=== PATIENT | female | born 1975 | race Caucasian/White ===

== ENCOUNTER 2017-07-14 11:27 | Emergency (ER) | payer OTHER, MEDICARE ==
[2017-07-14] MEDS ORDERED: Ondansetron 4 MG/2 ML SDV IVPUSH ONE (11:40)
[2017-07-14] MEDS ORDERED: Sodium Chloride 0.9% 1,000 ML IV ONE (11:40)
[2017-07-14] MEDS ORDERED: Ketorolac 30 MG/ML SDV IVPUSH ONE (11:40)
--- NOTE | 2017-07-14 11:43 | EDM.PDOC ---
ED HPI GENERAL MEDICAL PROBLEM - General Chief Complaint: Gastrointestinal Problem Stated Complaint: STOMACH PAIN Time Seen by Provider: 07/14/17 11:37 Source of Information: Reports: Patient History Limitations: Reports: No Limitations - History of Present Illness INITIAL COMMENTS - FREE TEXT/NARRATIVE: HISTORY AND PHYSICAL: History of present illness: Patient is a 41-year-old female who presents to the emergency room with complaints of generalized abdominal pain, nausea and diarrhea. She states that the pain will "jumping around" going from her low abdomen to her epigastric area. She has nausea but has not had any vomiting. Is eating and drinking appropriately. She denies any dysuria. Denies any chance of as she does have a IUD. Denies any chest pain, shortness of breath, or cough. Review of systems: As per history of present illness and below otherwise all systems reviewed and negative. Past medical history: As per history of present illness and as reviewed below otherwise noncontributory. Surgical history: As per history of present illness and as reviewed below otherwise noncontributory. Social history: No reported history of drug or alcohol abuse. Family history: As per history of present illness and as reviewed below otherwise noncontributory. Physical exam: Gen.: Well-developed and well-nourished 41-year-old female. Alert and oriented. Nontoxic appearing and in no acute distress HEENT: Atraumatic, normocephalic, pupils reactive, negative for conjunctival pallor or scleral icterus, mucous membranes moist, throat clear, neck supple, nontender, trachea midline. Lungs: Clear to auscultation, breath sounds equal bilaterally, chest nontender. Heart: S1S2, regular, negative for clicks, rubs, or JVD. Abdomen: Soft, nondistended, generalized diffuse tenderness throughout. Negative for masses or hepatosplenomegaly. Mild bilateral costovertebral tenderness. Pelvis: Stable nontender. Genitourinary: Deferred. Rectal: Deferred. Extremities: Atraumatic, negative for cords or calf pain. Neurovascular unremarkable. Neuro: Awake, alert, oriented. Cranial nerves II through XII unremarkable. Cerebellum unremarkable. Motor and sensory unremarkable throughout. Exam nonfocal. CBC, CMP, amylase, lipase are within normal limits. There is a few WBCs and bacteria in her urinalysis but is slightly contaminated due to epithelial cells noted in the sample. The patient is currently menstruating which would twice she has RBCs in her urine. Due to that we did do a CT scan which did not show any kidney stone. Did show diverticulosis without diverticulitis. I did add a urine culture onto her UA. We discussed her diagnostic results. Informed her to follow up with her primary care provider or a general surgeon if she continues to have abdominal pain. We'll prescribe Ultram and Zofran for comfort. She voices understanding and is agreeable to plan of care. Denies any further questions at her time. Diagnostics: CBC, CMP, UA, amylase, lipase Therapeutics: IV fluid, Toradol, Zofran Impression: Abdominal pain Plan: 1. The labs and CT results were within normal limits. A prescription for Zofran , antinausea, has been given to you. You may take 1 tablet every 6 hours as needed. Ultram has also been prescribed for comfort. This medication may cause drowsiness so do not take it when driving or needing to be functioning at work. 2. A urine culture has been added on to her labs. We will call you if we need to add an antibiotic in the next 2-3 days. 3. If you continued to have abdominal pain please follow-up with her primary care provider or general surgeon as we discussed. Return to the ED as needed and as discussed. Definitive disposition and diagnosis as appropriate pending reevaluation and review of above. Abdominal Pain Score (Numeric/FACES): 7 - Related Data Allergies Allergy/AdvReac Type Severity Reaction Status Date / Time cephalexin monohydrate Allergy unknown Verified 07/14/17 11:37 [From Keflex] escitalopram oxalate Allergy closed up Verified 07/14/17 11:37 [From Lexapro] throat meperidine HCl [From Demerol] Allergy Nausea and Verified 07/14/17 11:37 Vomiting nitrofurantoin Allergy throat Verified 07/14/17 11:37 [From Macrobid] closing nitrofurantoin Allergy throat Verified 07/14/17 11:37 macrocrystalline closing [From Macrobid] Penicillins Allergy Shortness Verified 07/14/17 11:37 of Breath Sulfa (Sulfonamide Allergy generalized Verified 07/14/17 11:37 Antibiotics) body aches sumatriptan [From Imitrex] Allergy Chest Pain Verified 07/14/17 11:37 sumatriptan succinate Allergy Chest Pain Verified 07/14/17 11:37 [From Imitrex] cipro Allergy Rash Uncoded 10/15/14 16:16 Home Meds: Home Meds Simvastatin [Zocor] 20 mg PO BEDTIME 10/15/14 [History] traZODone 150 mg PO BEDTIME 10/15/14 [History] Vortioxetine Hydrobromide [Trintellix] 20 mg PO DAILY 07/14/17 [History] Past Medical History Other Gastrointestinal History: bowel obstruction Social & Family History - Tobacco Use Smoking Status *Q: Never Smoker Second Hand Smoke Exposure: No - Alcohol Use Days Per Week of Alcohol Use: 1 Number of Drinks Per Day: 2 Total Drinks Per Week: 2 - Recreational Drug Use Recreational Drug Use: No ED ROS GENERAL - Review of Systems Review Of Systems: ROS reveals no pertinent complaints other than HPI. ED EXAM, GI/ABD - Physical Exam Exam: See Below (See dictation) Course - Vital Signs Last Recorded V/S: Last Vital Signs Temp 99.2 F 07/14/17 11:35 Pulse 66 07/14/17 12:19 Resp 16 07/14/17 12:19 BP 130/78 07/14/17 12:19 Pulse Ox 93 L 07/14/17 12:19 - Orders/Labs/Meds Orders: Active Orders 24 hr Category Date Time Status CULTURE URINE [RM] Stat Lab 07/14/17 11:42 Received Labs: Laboratory Tests 07/14/17 07/14/17 07/14/17 Range/Units 11:42 11:42 12:06 WBC 7.07 (4.0-11.0) K/uL RBC 5.09 (4.30-5.90) M/uL Hgb 14.0 (12.0-16.0) g/dL Hct 41.1 (36.0-46.0) % MCV 80.7 (80.0-98.0) fL MCH 27.5 (27.0-32.0) pg MCHC 34.1 (31.0-37.0) g/dL RDW Std Deviation 41.4 (28.0-62.0) fl RDW Coeff of Emily 14 (11.0-15.0) % Plt Count 240 (150-400) K/uL MPV 9.50 (7.40-12.00) fL Neut % (Auto) 59.8 (48.0-80.0) % Lymph % (Auto) 25.7 (16.0-40.0) % Bureau % (Auto) 11.0 (0.0-15.0) % Eos % (Auto) 3.1 (0.0-7.0) % Baso % (Auto) 0.4 (0.0-1.5) % Neut # (Auto) 4.2 (1.4-5.7) K/uL Lymph # (Auto) 1.8 (0.6-2.4) K/uL Bureau # (Auto) 0.8 (0.0-0.8) K/uL Eos # (Auto) 0.2 (0.0-0.7) K/uL Baso # (Auto) 0.0 (0.0-0.1) K/uL Nucleated RBC % 0.0 /100WBC Nucleated RBCs # 0 K/uL Sodium (136-146) mmol/L Potassium (3.5-5.1) mmol/L Chloride (98-110) mmol/L Carbon Dioxide (21-31) mmol/L BUN (6.0-23.0) mg/dL Creatinine (0.6-1.5) mg/dL Est Cr Clr Drug Dosing mL/min Estimated GFR (MDRD) ml/min Glucose (60-110) mg/dL Calcium (8.8-10.8) mg/dL Total Bilirubin (0.1-1.5) mg/dL AST (5-40) IU/L ALT (8-54) IU/L Alkaline Phosphatase (40-150) Total Protein (6.0-8.0) g/dL Albumin (3.5-5.0) g/dL Globulin (2.0-3.5) g/dL Albumin/Globulin Ratio (1.3-2.8) Amylase (10-90) U/L Lipase (7-80) U/L Urine Color YELLOW Urine Appearance CLOUDY Urine pH 6.0 (5.0-8.0) Ur Specific [place] >= 1.030 (1.001-1.035) Urine Protein TRACE (NEGATIVE) mg/dL Urine Glucose (UA) NEGATIVE (NEGATIVE) mg/dL Urine Ketones NEGATIVE (NEGATIVE) mg/dL Urine Occult Blood LARGE H (NEGATIVE) Urine Nitrite NEGATIVE (NEGATIVE) Urine Bilirubin SMALL H (NEGATIVE) Urine Urobilinogen 0.2 (<2.0) EU/dL Ur Leukocyte Esterase NEGATIVE (NEGATIVE) Urine RBC TOO NUMBEROUS TO CT H (0-2/HPF) Urine WBC 1-2 (0-5/HPF) Ur Epithelial Cells RARE (NONE-FEW) Urine Bacteria FEW (NEGATIVE) Urinalysis Comment Urine HCG, Qual NEGATIVE (NEGATIVE) 07/14/17 Range/Units 12:06 WBC (4.0-11.0) K/uL RBC (4.30-5.90) M/uL Hgb (12.0-16.0) g/dL Hct (36.0-46.0) % MCV (80.0-98.0) fL MCH (27.0-32.0) pg MCHC (31.0-37.0) g/dL RDW Std Deviation (28.0-62.0) fl RDW Coeff of Emily (11.0-15.0) % Plt Count (150-400) K/uL MPV (7.40-12.00) fL Neut % (Auto) (48.0-80.0) % Lymph % (Auto) (16.0-40.0) % Bureau % (Auto) (0.0-15.0) % Eos % (Auto) (0.0-7.0) % Baso % (Auto) (0.0-1.5) % Neut # (Auto) (1.4-5.7) K/uL Lymph # (Auto) (0.6-2.4) K/uL Bureau # (Auto) (0.0-0.8) K/uL Eos # (Auto) (0.0-0.7) K/uL Baso # (Auto) (0.0-0.1) K/uL Nucleated RBC % /100WBC Nucleated RBCs # K/uL Sodium 141 (136-146) mmol/L Potassium 3.7 (3.5-5.1) mmol/L Chloride 110 (98-110) mmol/L Carbon Dioxide 20 L (21-31) mmol/L BUN 9 (6.0-23.0) mg/dL Creatinine 1.0 (0.6-1.5) mg/dL Est Cr Clr Drug Dosing 67.29 mL/min Estimated GFR (MDRD) > 60.0 ml/min Glucose 105 (60-110) mg/dL Calcium 9.5 (8.8-10.8) mg/dL Total Bilirubin 0.3 (0.1-1.5) mg/dL AST 22 (5-40) IU/L ALT 23 (8-54) IU/L Alkaline Phosphatase 63 (40-150) Total Protein 8.0 (6.0-8.0) g/dL Albumin 4.3 (3.5-5.0) g/dL Globulin 3.7 H (2.0-3.5) g/dL Albumin/Globulin Ratio 1.2 L (1.3-2.8) Amylase 43 (10-90) U/L Lipase 33 (7-80) U/L Urine Color Urine Appearance Urine pH (5.0-8.0) Ur Specific [place] (1.001-1.035) Urine Protein (NEGATIVE) mg/dL Urine Glucose (UA) (NEGATIVE) mg/dL Urine Ketones (NEGATIVE) mg/dL Urine Occult Blood (NEGATIVE) Urine Nitrite (NEGATIVE) Urine Bilirubin (NEGATIVE) Urine Urobilinogen (<2.0) EU/dL Ur Leukocyte Esterase (NEGATIVE) Urine RBC (0-2/HPF) Urine WBC (0-5/HPF) Ur Epithelial Cells (NONE-FEW) Urine Bacteria (NEGATIVE) Urinalysis Comment Urine HCG, Qual (NEGATIVE) Meds: Medications Discontinued Medications Generic Name Dose Route Start Last Admin Trade Name Freq PRN Reason Stop Dose Admin Sodium Chloride 1,000 mls @ 999 mls/hr 07/14/17 11:40 07/14/17 12:11 Normal Saline IV 07/14/17 12:40 999 mls/hr STAT ONE Administration Iopamidol 100 ml 07/14/17 13:26 07/14/17 13:28 Isovue Multipack-370 (76%) IVPUSH 07/14/17 13:27 100 ml ONETIME STA Administration Ketorolac Tromethamine 30 mg 07/14/17 11:40 07/14/17 12:16 Toradol IVPUSH 07/14/17 11:41 30 mg ONETIME ONE Administration Morphine Sulfate 2 mg 07/14/17 12:46 01/18/18 12:53 Morphine IVPUSH 07/14/17 12:47 2 mg ONETIME ONE Administration Ondansetron HCl 4 mg 07/14/17 11:40 07/14/17 12:13 Zofran IVPUSH 07/14/17 11:41 4 mg ONETIME ONE Administration Departure - Departure Time of Disposition: 14:25 Disposition: Home, Self-Care 01 Clinical Impression: Abdominal pain - Discharge Information Referrals: Yo Chadwick MD [Primary Care Provider] - Forms: ED Department Discharge Additional Instructions: My general discharge The following information is given to patients seen in the emergency department who are being discharged to home. This information is to outline your options for follow-up care. We provide all patients seen in our emergency department with a follow-up referral. The need for follow-up, as well as the timing and circumstances, are variable depending upon the specifics of your emergency department visit. If you don't have a primary care physician on staff, we will provide you with a referral. We always advise you to contact your personal physician following an emergency department visit to inform them of the circumstance of the visit and for follow-up with them and/or the need for any referrals to a consulting specialist. The emergency department will also refer you to a specialist when appropriate. This referral assures that you have the opportunity for follow-up care with a specialist. All of these measure are taken in an effort to provide you with optimal care, which includes your follow-up. Under all circumstances we always encourage you to contact your private physician who remains a resource for coordinating your care. When calling for follow-up care, please make the office aware that this follow-up is from your recent emergency room visit. If for any reason you are refused follow-up, please contact the [facility] Emergency Department at and asked to speak to the emergency department charge nurse. 1. The labs and CT results were within normal limits. A prescription for Zofran , antinausea, has been given to you. You may take 1 tablet every 6 hours as needed. Ultram has also been prescribed for comfort. This medication may cause drowsiness so do not take it when driving or needing to be functioning at work. 2. A urine culture has been added on to her labs. We will call you if we need to add an antibiotic in the next 2-3 days. 3. If you continued to have abdominal pain please follow-up with her primary care provider or general surgeon as we discussed. Return to the ED as needed and as discussed. - My Orders Last 24 Hours: My Active Orders 07/14/17 11:42 CULTURE URINE [RM] Stat - Assessment/Plan Last 24 Hours: My Active Orders 07/14/17 11:42 CULTURE URINE [RM] Stat
[2017-07-14 12:46] LABS: CHLORIDE,CL 110 mmol/L (98-110); SODIUM,NA 141 mmol/L (136-146)
[2017-07-14] MEDS ORDERED: Morphine 2 MG/ML Syringe IVPUSH ONE (12:46)
[2017-07-14] MEDS ORDERED: Iopamidol 755 MG/ML 500 ML Multipack Bottle IVPUSH STA (13:26)
--- NOTE | 2017-07-14 14:09 | CT ---
CT of the abdomen and pelvis with contrast. HISTORY: Pain TECHNIQUE: Axial CT images were obtained of the abdomen and pelvis following administration of 100 mL of Isovue-370 in left antecubital fossa without complication. Coronal and sagittal reconstructions o btained. FINDINGS: The lung bases are clear, no pleural effusion. Cholecystectomy clips are noted. The common bile duct is mildly prominent, likely reservoir effect. T he pancreas, spleen, and adrenal glands appear normal. The kidneys enhance and function symmetrically without evidence of obstructive uropathy. The large and small bowel are normal in caliber without evidence of obstruction. Mild/moderate divert iculosis without evidence of diverticulitis. Appendectomy. No bulky pelvic lymphadenopathy or free pe lvic fluid. The urinary bladder is normal. Uterus and ovaries appear normal. Essure devices noted. No suspicious osseous abnormalities identified. IMPRESSION: 1. No acute findings demonstrated within the abdomen or pelvis. 2. Diverticulosis without evidence of diverticulitis. 3. Cholecystectomy and appendectomy.
[2017-07-14 16:39] VITALS: BP 152/99
== END 2017-07-14 15:02 | disposition home or self-care (01) ==
LOC: MW.ED 11:27
DX: R10.84 Generalized abdominal pain (principal); Z79.899 Other long term (current) drug therapy; Z88.0 Allergy status to penicillin; Z88.1 Allergy status to other antibiotic agents; Z88.2 Allergy status to sulfonamides; Z88.8 Allergy status to other drugs, medicaments and biological substances
CPT/HCPCS: 36415; 74177; 80053; 81001; 81025; 82150; 83690; 85025; 87086; 96361; 96374; 96375; 99284; J1885; J2270; J2405; J7040; Q9967

== ENCOUNTER 2020-06-06 09:58 | Emergency (ER) | payer OTHER, MEDICARE ==
[2020-06-06 10:15] VITALS: BP 135/85; PULSE 77
--- NOTE | 2020-06-06 10:39 | EDM.PDOC ---
ED HPI GENERAL MEDICAL PROBLEM - General Chief Complaint: Gastrointestinal Problem Stated Complaint: HEMORRHOIDS Time Seen by Provider: 06/06/20 10:05 Source of Information: Reports: Patient History Limitations: Reports: No Limitations - History of Present Illness INITIAL COMMENTS - FREE TEXT/NARRATIVE: HISTORY AND PHYSICAL: History of present illness: Patient is a 44-year-old female who presents to the emergency room from the clinic for evaluation of a hemorrhoid. She states she has a hemorrhoid that intermittently flares up over the past several years, this morning she noticed the hemorrhoid "come out of nowhere" and was causing increased pain with weightbearing/sitting. She did go to the clinic, they recommended she come to the emergency room to have it "looked at". She did use some [id number] medication without any relief. States in the past she has used topical lidocaine jelly with good relief. Patient denies any fever, chills, headache, change in vision, syncope or near syncope. Denies any chest pain, back pain, shortness of breath or cough. Denies any abdominal pain, nausea, vomiting, diarrhea, constipation or dysuria. Has not noted any blood in urine or stool. States she did have a normal bowel movement this morning without any straining or blood. Patient has been eating and drinking appropriately. Review of systems: As per history of present illness and below otherwise all systems reviewed and negative. Past medical history: As per history of present illness and as reviewed below otherwise noncontributory. Surgical history: As per history of present illness and as reviewed below otherwise noncontributory. Social history: See social history for further information Family history: As per history of present illness and as reviewed below otherwise noncontributory. Physical exam: General: Well developed and well nourished. Alert and orientated x 3. Nontoxic in appearance and in no acute distress. Vital signs are stable and have been reviewed by me. Nursing notes were reviewed. HEENT: Atraumatic, normocephalic, pupils equal and reactive bilaterally, negative for conjunctival pallor or scleral icterus, mucous membranes moist, TMs normal bilaterally, throat clear, neck supple, nontender, trachea midline. No drooling or trismus noted. No meningeal signs. No hot potato voice noted. Lungs: Clear to auscultation, breath sounds equal bilaterally, chest nontender. Normal work of breathing, no accessory muscles used. Heart: S1S2, regular rate and rhythm without overt murmur Abdomen: Soft, nondistended, nontender. Negative for masses or hepatosplenomegaly. Negative for costovertebral tenderness. Pelvis: Stable nontender. Genitourinary: Deferred. Rectal: This was done with consent and a commissary agent at the bedside. She does have a thrombosed hemorrhoid at the 6 o'clock position, tender to touch. Good rectal tone, no internal hemorrhoids noted. Hemoccult negative. Skin: Intact, warm, dry. No lesions or rashes noted. Hematologic: No petechiae or purpra. Mucosa appropriate color and normal nail bed color and refill. Extremities: Atraumatic, moves all extremities per self without difficulty or deficits, negative for cords or calf pain. Neurovascular unremarkable. Neuro: Awake, alert, oriented. Cranial nerves II through XII unremarkable. Cerebellum unremarkable. Motor and sensory unremarkable throughout. Exam nonfocal. Psychiatric: Mood and affect are appropriate. Normal thought process. Answering questions appropriately. Notes: Discussed with patient options for treatment. I did offer to call and set up a follow-up appointment with her to see the general surgeon to have this removed, she would prefer to do [id number] and prescribed medications first to see if we can get it to calm down. I have talked with the patient about today's findings, in addition to providing specific details for plan of care. The patient is stable for discharge, counseling was provided and we discussed in great detail signs and symptoms that would prompt them to return to the Emergency Department. Medication, follow up and supportive care measures were reviewed and discussed. Voices understanding and is agreeable to plan of care. Denies any further questions or concerns at this time. Diagnostics: None Therapeutics: None Prescription: Anusol, lidocaine Impression: Hemorrhoids Plan: 1. Today your exam shows an external hemorrhoid. Please take the medication as prescribed over the next week. 2. Try to ingest 20-30g of insoluble fiber per day. Drink plenty of water. Try to reduce straining when having a bowel movement. 3. We encourage you to follow up with your primary care provider and/or general surgeon re-evaluation and further care/management. If your symptoms should worsen, new symptoms develop or any of the signs and symptoms we discussed should arise please return to the emergency room or call 911 (if needed). Definitive disposition and diagnosis as appropriate pending reevaluation and review of above. rectal Pain Score (Numeric/FACES): 3 - Related Data Allergies Allergy/AdvReac Type Severity Reaction Status Date / Time cephalexin monohydrate Allergy unknown Verified 06/06/20 10:09 [From Keflex] escitalopram oxalate Allergy closed up Verified 06/06/20 10:09 [From Lexapro] throat meperidine HCl [From Demerol] Allergy Nausea and Verified 06/06/20 10:09 Vomiting nitrofurantoin Allergy throat Verified 06/06/20 10:09 [From Macrobid] closing nitrofurantoin Allergy throat Verified 06/06/20 10:09 macrocrystalline closing [From Macrobid] Penicillins Allergy Shortness Verified 06/06/20 10:09 of Breath Sulfa (Sulfonamide Allergy generalized Verified 06/06/20 10:09 Antibiotics) body aches sumatriptan [From Imitrex] Allergy Chest Pain Verified 06/06/20 10:09 sumatriptan succinate Allergy Chest Pain Verified 06/06/20 10:09 [From Imitrex] cipro Allergy Rash Uncoded 06/06/20 10:09 Home Meds: Home Meds traZODone 25 mg PO BEDTIME 10/15/14 [History] Diclofenac Submicronized [Diclofenac] 35 mg PO DAILY PRN 06/06/20 [History] Hydrocortisone [Anusol-HC] 1 dose RC BID #1 jar 06/06/20 [Rx] Lidocaine 5% 1 dose RC 6XDAY PRN #1 tube 06/06/20 [Rx] Ondansetron [Zofran] 4 mg PO DAILY PRN 06/06/20 [History] Rosuvastatin [Crestor] 10 mg PO DAILY 06/06/20 [History] Past Medical History Cardiovascular History: Reports: High Cholesterol Gastrointestinal History: Reports: Hemorrhoids, Other (See Below) Other Gastrointestinal History: bowel obstruction 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 ED EXAM, GI/ABD - Physical Exam Exam: See Below (See dictation) Course - Vital Signs Last Recorded V/S: Last Vital Signs Temp 98.8 F 06/06/20 10:12 Pulse 77 06/06/20 10:12 Resp 18 06/06/20 10:12 BP 135/85 06/06/20 10:12 Pulse Ox 96 06/06/20 10:12 Departure - Departure Time of Disposition: 10:39 Disposition: Home, Self-Care 01 Clinical Impression: Hemorrhoid Qualifiers: Hemorrhoid type: unspecified Qualified Code(s): K64.9 - Unspecified hemorrhoids - Discharge Information Prescriptions: Hydrocortisone [Anusol-HC] 1 dose RC BID #1 jar Lidocaine 5% 1 dose RC 6XDAY PRN #1 tube PRN Reason: Pain Instructions: Hemorrhoids, [id number] Referrals: Yo Chadwick MD [Primary Care Provider] - Forms: ED Department Discharge Additional Instructions: The following information is given to patients seen in the emergency department who are being discharged to home. This information is to outline your options for follow-up care. We provide all patients seen in our emergency department with a follow-up referral. The need for follow-up, as well as the timing and circumstances, are variable depending upon the specifics of your emergency department visit. If you don't have a primary care physician on staff, we will provide you with a referral. We always advise you to contact your personal physician following an emergency department visit to inform them of the circumstance of the visit and for follow-up with them and/or the need for any referrals to a consulting specialist. The emergency department will also refer you to a specialist when appropriate. This referral assures that you have the opportunity for follow-up care with a specialist. All of these measure are taken in an effort to provide you with optimal care, which includes your follow-up. Under all circumstances we always encourage you to contact your private physician who remains a resource for coordinating your care. When calling for follow-up care, please make the office aware that this follow-up is from your recent emergency room visit. If for any reason you are refused follow-up, please contact the [facility] Emergency Department at and asked to speak to the emergency department charge nurse. [facility] [address] [place] [address] [facility] [address] [place] [address] Thank you for choosing the [facility] emergency department in [place] for your medical needs today. It was a pleasure caring for you. Today you were seen in the emergency department for hemorrhoid care. 1. Today your exam shows an external hemorrhoid. Please take the medication as prescribed over the next week. 2. Try to ingest 20-30g of insoluble fiber per day. Drink plenty of water. Try to reduce straining when having a bowel movement. 3. We encourage you to follow up with your primary care provider and/or general surgeon re-evaluation and further care/management. If your symptoms should worsen, new symptoms develop or any of the signs and symptoms we discussed should arise please return to the emergency room or call 911 (if needed). Sepsis Event Note (ED) - Evaluation Sepsis Screening Result: No Definite Risk - Focused Exam Vital Signs: Vital Signs Temp Pulse Resp BP Pulse Ox 06/06/20 10:12 98.8 F 77 18 135/85 96
== END 2020-06-06 10:54 | disposition home or self-care (01) ==
LOC: MW.ED 09:58
DX: K64.5 Perianal venous thrombosis (principal); E78.00 Pure hypercholesterolemia, unspecified; Z88.1 Allergy status to other antibiotic agents; Z88.8 Allergy status to other drugs, medicaments and biological substances; Z88.5 Allergy status to narcotic agent; Z88.0 Allergy status to penicillin; Z88.2 Allergy status to sulfonamides; Z79.899 Other long term (current) drug therapy
CPT/HCPCS: 99282

== ENCOUNTER 2024-01-06 13:02 | Emergency (ER) | payer BC ==
[2024-01-06] MEDS: Sodium Chloride 0.9% 500 ML IV SCH (15:15)
[2024-01-06] MEDS: Ondansetron 4 MG/2 ML SDV IVPUSH ONE (15:16)
[2024-01-06] MEDS: Sodium Chloride 0.9% 2.5 ML Syringe FLUSH PRN (15:19)
[2024-01-06] MEDS: Sodium Chloride 0.9% 10 ML Syringe FLUSH PRN (15:19)
[2024-01-06 15:23] LABS: BASOPHILS ABSOLUTE AUTO 0.04 K/uL (0.00-0.20); BASOPHILS PERCENT AUTO 0.6 % (0.0-1.0); EOSINOPHILS ABSOLUTE AUTO 0.15 K/uL (0.00-0.45); EOSINOPHILS PERCENT AUTO 2.2 % (0.0-6.0); HEMATOCRIT 38.2 % (37.0-47.0); IMMATURE GRAN ABSOLUTE AUTO 0.01 K/uL (0.00-0.05); IMMATURE GRAN PERCENT AUTO 0.1 % (0.0-0.4); LYMPHOCYTES ABSOLUTE AUTO 1.71 K/uL (1.00-4.80); LYMPHOCYTES PERCENT AUTO 24.7 % (24.0-44.0); MEAN CORPUSCULAR HEMOGLOBIN 28.4 pg (28.0-32.0); MEAN CORPUSCULAR VOLUME 83.6 fL (83.0-99.0); MEAN PLATELET VOLUME 9.7 fL (9.4-12.3); MONOCYTES ABSOLUTE AUTO 0.56 K/uL (0.00-0.80); MONOCYTES PERCENT AUTO 8.1 % (0.0-8.0); NEUTROPHILS ABSOLUTE AUTO 4.44 K/uL (1.80-7.70); NEUTROPHILS PERCENT AUTO 64.3 % (41.0-71.0); PLATELET COUNT,PLT 277 K/uL (150-400); RED BLOOD CELL COUNT 4.57 M/uL (4.10-5.30); WHITE BLOOD CELL COUNT,WBC 6.91 K/uL (3.9-11.3)
[2024-01-06 15:45] LABS: A/G RATIO 1.1 (0.9-1.6); ALBUMIN 4.1 g/dL (3.4-5.0); BILIRUBIN TOTAL 0.5 mg/dL (0.2-1.0); CALCIUM 9.1 mg/dL (8.5-10.1); CARBON DIOXIDE,CO2 22.9 mmol/L (21.0-32.0); CREATININE 0.9 mg/dL (0.6-1.0); EST CRCL DRUG DOSING (CG) 69.53 mL/min; POTASSIUM,K 3.8 mmol/L (3.5-5.1); PROTEIN TOTAL,TP 7.8 g/dL (6.4-8.2)
[2024-01-06] MEDS: Iopamidol 755 MG/ML 500 ML Multipack Bottle IVPUSH STA (16:23)
[2024-01-06 17:19] VITALS: BP 132/85; PULSE 85
== END 2024-01-06 17:17 | disposition home or self-care (01) ==
LOC: MW.ED 13:02
DX: R10.84 Generalized abdominal pain (principal); E78.00 Pure hypercholesterolemia, unspecified; Z75.8 Other problems related to medical facilities and other health care; Z88.0 Allergy status to penicillin; Z88.2 Allergy status to sulfonamides; Z88.8 Allergy status to other drugs, medicaments and biological substances; Z79.899 Other long term (current) drug therapy; Z90.49 Acquired absence of other specified parts of digestive tract
CPT/HCPCS: 36415; 74177; 80053; 83690; 84703; 85025; 96361; 96374; 99284; J2405; J3490; J7040; Q9967